=== PATIENT | female | born 1955 | race Two or more races ===

== ENCOUNTER 2018-01-13 23:12 | Inpatient (IN) | payer OTHER, MEDICAID ==
[~2018-01-13] VITALS: Ht 165.1 cm; Wt 80.8 kg
[~2018-01-13 23:12] MED LIST: ATOR20TA9 PO; BACL20TA PO; BUPR100T11 PO; CETI10TA32 PO; GABA300C PO; HYDR-3307 PO; LEVOTHYROXIN PO; LIDO700A30 TP; LISI-170; LISI-170 PO; METF-366; METF500T4 PO; MULT1TAB50; MULT1TAB50 PO; PARO20TA4 PO; POLY500P18 PO; PROP80CA3 PO; PROPRANOLOL ER; TIZA4CAP
[2018-01-13] MEDS ORDERED: ONDANSETRON ODT 4 MG ONE (23:24)
[2018-01-13] MEDS ORDERED: GLUCAGON 1 MG ONE (23:24)
[2018-01-13] MEDS ORDERED: NALOXONE 0.4 MG/ML, 1ML ONE (23:24)
[2018-01-13] MEDS ORDERED: GLUCAGON 1 MG IVPush ONE (23:30)
[2018-01-13] MEDS ORDERED: ONDANSETRON ODT 4 MG PO ONE (23:30)
[2018-01-13] MEDS ORDERED: NALOXONE 0.4 MG/ML, 1ML IVPush PRN (23:30)
[2018-01-13] MEDS ORDERED: SODIUM CHLORIDE 0.9% 1,000ML IVBOLUS ONE (23:30)
[2018-01-13] MEDS ORDERED: CHARCOAL/SORBITOL 50 GM/240 ML PO ONE (23:30)
[2018-01-13] MEDS ORDERED: PROMETHAZINE 25 MG/ML, 1ML ONE (23:39)
[2018-01-14 00:07] LABS: BASOPHILS # (AUTO) 0.04 x10^3/uL (0-0.1); BASOPHILS % (AUTO) 0 % (0-1); EOSINOPHILS # (AUTO) 0.39 x10^3/uL (0-0.4); EOSINOPHILS % (AUTO) 4 % (1-7); LYMPHOCYTES # (AUTO) 4.42 x10^3/uL (1-3.4); LYMPHOCYTES % (AUTO) 40 % (22-44); MD NO; MEAN CORPUSCULAR HEMOGLOBIN 33.7 pg (27.0-34.8); MEAN CORPUSCULAR HGB CONC 34.1 g/dL (32.4-35.8); MEAN CORPUSCULAR VOLUME 98.9 fL (80-100); MEAN PLATELET VOLUME 7.5 fL (7.4-10.4); MONOCYTES # (AUTO) 0.79 x10^3/uL (0.2-0.8); MONOCYTES % (AUTO) 7 % (2-9); NEUTROPHILS # (AUTO) 5.44 x10^3/uL (1.8-6.8); NEUTROPHILS % (AUTO) 49 % (42-75); PLATELET COUNT 279 x10^3/uL (130-400); RED BLOOD COUNT 3.39 x10^6/uL (3.82-5.3); RED CELL DISTRIBUTION WIDTH 12.7 % (9.6-15.2)
[2018-01-14 00:18] LABS: ALANINE AMINOTRANSFERASE 26 U/L (12-78); ALBUMIN 2.3 g/dL (3.4-5.0); ANION GAP 14 mmol/L (5-15); CALCIUM 7.9 mg/dL (8.5-10.1); CHLORIDE 117 mmol/L (98-107); SALICYLATE LEVEL 4.2 mg/dL (2.8-20.0)
[2018-01-14 00:21] LABS: ACETAMINOPHEN 3 mcg/mL (10-30); ALKALINE PHOSPHATASE 100 U/L (45-117); BILIRUBIN,TOTAL 0.3 mg/dL (0.2-1.0); CREATININE 1.21 mg/dL (0.55-1.02); TOTAL PROTEIN 5.5 g/dL (6.4-8.2)
[2018-01-14] MEDS ORDERED: LIDOCAINE-MPF 1%, 5ML ONE (00:26)
[2018-01-14] MEDS ORDERED: GLUCAGON 1 MG IM PRN (00:30)
[2018-01-14] MEDS ORDERED: DEXTROSE 4 GM TAB.CHEW PO PRN (00:30)
[2018-01-14] MEDS ORDERED: ACETAMINOPHEN 325 MG TABLET PO PRN (00:30)
[2018-01-14] MEDS ORDERED: DEXTROSE 50%, 50ML SYRINGE IVPush PRN ×2 (00:30→04:00)
[2018-01-14] MEDS: DOPAMINE/D5W PMX 250 ML IV PRN ×3 (00:55→08:58)
[2018-01-14 00:59] LABS: TROPONIN I < 0.015 ng/mL (0.000-0.045)
[2018-01-14] MEDS ORDERED: GLUCAGON 1 MG ONE (01:25)
[2018-01-14] MEDS: SODIUM CHLORIDE 0.9% 1,000 ML IV SCH ×2 (01:30→08:29)
[2018-01-14] MEDS ORDERED: GLUCAGON 1 MG IVPush ONE (01:30)
[2018-01-14] MEDS ORDERED: NOREPINEPHRINE 4 MG in SODIUM CHLORIDE 0.9% 246 ML IV PRN ×2 (02:00→03:00)
[2018-01-14 02:01] LABS: CULTURE INDICATED? NO; MICROSCOPIC NOT IND
[2018-01-14] MEDS ORDERED: RISP0.5T3 PO (02:04)
[2018-01-14 02:16] LABS: AMPHETAMINE SCREEN, URINE Negative (Negative); BARBITURATE SCREEN, URINE Negative (Negative); BENZODIAZEPINE SCREEN, URINE Negative (Negative); CANNABINOID SCREEN, URINE Negative (Negative); COCAINE SCREEN, URINE Negative (Negative); METHADONE SCREEN, URINE Negative (Negative); OPIATE SCREEN, URINE Negative (Negative)
[2018-01-14 03:15] VITALS: BP 91/42
[2018-01-14] MEDS: SODIUM CHLORIDE FLUSH 10ML SYR IVF SCH ×5 (03:29→21:14)
[2018-01-14] MEDS ORDERED: REGULAR INSULIN 250 UNITS in SODIUM CHLORIDE 0.9% 247.5 ML IV SCH (03:30)
[2018-01-14] MEDS: HEPARIN 5,000 UNITS/ML, 1ML SQ SCH ×3 (03:30→20:09)
[2018-01-14] MEDS ORDERED: NOREPINEPHRINE 16 MG in SODIUM CHLORIDE 0.9% 234 ML IV PRN ×2 (03:42→03:43)
[2018-01-14 04:06] VITALS: BP 99/47
[2018-01-14] MEDS ORDERED: INSULIN REGULAR 100 UNITS/ML, 3ML VIAL SQ-INSULIN SCH (07:00)
[2018-01-14 07:08] LABS: TROPONIN I 0.209 ng/mL (0.000-0.045)
[2018-01-14 07:17] LABS: MEAN CORPUSCULAR HGB CONC 33.6 g/dL (32.4-35.8); MEAN PLATELET VOLUME 7.8 fL (7.4-10.4); PLATELET COUNT 359 x10^3/uL (130-400); RED BLOOD COUNT 4.08 x10^6/uL (3.82-5.3); RED CELL DISTRIBUTION WIDTH 12.6 % (9.6-15.2)
[2018-01-14 07:20] LABS: ANION GAP 13 mmol/L (5-15); CALCIUM 8.3 mg/dL (8.5-10.1); CHLORIDE 115 mmol/L (98-107)
[2018-01-14 07:34] LABS: BASOPHILS # (AUTO) 0.01 x10^3/uL (0-0.1); BASOPHILS % (AUTO) 0 % (0-1); EOSINOPHILS # (AUTO) 0.02 x10^3/uL (0-0.4); EOSINOPHILS % (AUTO) 0 % (1-7); LYMPHOCYTES # (AUTO) 1.46 x10^3/uL (1-3.4); LYMPHOCYTES % (AUTO) 9 % (22-44); MD SCAN; MONOCYTES # (AUTO) 0.78 x10^3/uL (0.2-0.8); MONOCYTES % (AUTO) 5 % (2-9); NEUTROPHILS # (AUTO) 14.05 x10^3/uL (1.8-6.8); NEUTROPHILS % (AUTO) 86 % (42-75)
[2018-01-14] MEDS: REGULAR INSULIN 500 UNITS in SODIUM CHLORIDE 0.9% 245 ML IV SCH ×3 (08:00→19:18)
[2018-01-14] MEDS ORDERED: SODIUM BICARB 8.4%, 50ML SYRINGE IVPush ONE (08:30)
[2018-01-14] MEDS: SODIUM BICARBONATE 8.4% 150 MEQ in DEXTROSE 5% 1,000 ML IV SCH ×2 (09:27→18:24)
[2018-01-14] MEDS: FAMOTIDINE 20 MG/2 ML IVPush SCH ×2 (09:27→21:14)
[2018-01-14] MEDS: NICOTINE 14MG/24 HR PATCH.TD24 TD SCH (09:28)
[2018-01-14 12:24] LABS: ANION GAP 7 mmol/L (5-15); CALCIUM 7.7 mg/dL (8.5-10.1); CHLORIDE 110 mmol/L (98-107); CREATININE 1.24 mg/dL (0.55-1.02)
[2018-01-14 12:28] LABS: TROPONIN I 0.258 ng/mL (0.000-0.045)
[2018-01-14] MEDS: INSULIN LISPRO 100 UNITS/ML, PEN SQ-INSULIN SCH ×2 (16:00→21:00)
[2018-01-14 18:11] LABS: ANION GAP 10 mmol/L (5-15); CALCIUM 7.5 mg/dL (8.5-10.1); CHLORIDE 105 mmol/L (98-107); CREATININE 1.25 mg/dL (0.55-1.02)
[2018-01-14 18:15] LABS: TROPONIN I 0.214 ng/mL (0.000-0.045)
[2018-01-14 18:31] LABS: MEAN CORPUSCULAR HEMOGLOBIN 32.8 pg (27.0-34.8); MEAN CORPUSCULAR HGB CONC 33.8 g/dL (32.4-35.8); MEAN CORPUSCULAR VOLUME 97.2 fL (80-100); MEAN PLATELET VOLUME 7.3 fL (7.4-10.4); PLATELET COUNT 286 x10^3/uL (130-400); RED BLOOD COUNT 3.66 x10^6/uL (3.82-5.3); RED CELL DISTRIBUTION WIDTH 12.5 % (9.6-15.2)
[2018-01-14 18:33] LABS: BASOPHILS % (AUTO) 0 % (0-1); EOSINOPHILS % (AUTO) 0 % (1-7); LYMPHOCYTES # (AUTO) 1.37 x10^3/uL (1-3.4); LYMPHOCYTES % (AUTO) 12 % (22-44); MD SCAN; MONOCYTES # (AUTO) 0.66 x10^3/uL (0.2-0.8); MONOCYTES % (AUTO) 6 % (2-9); NEUTROPHILS # (AUTO) 9.64 x10^3/uL (1.8-6.8); NEUTROPHILS % (AUTO) 83 % (42-75)
[2018-01-14] MEDS ORDERED: MAGNESIUM SULFATE PMX 4GM/100M 100 ML IV ONE (19:00)
[2018-01-15] MEDS ORDERED: HALOPERIDOL 5 MG/ML ONE (00:15)
[2018-01-15] MEDS ORDERED: HALOPERIDOL 5 MG/ML IV ONE ×2 (00:30→20:30)
[2018-01-15] MEDS: REGULAR INSULIN 500 UNITS in SODIUM CHLORIDE 0.9% 245 ML IV SCH ×2 (00:57→06:17)
[2018-01-15] MEDS: SODIUM BICARBONATE 8.4% 150 MEQ in DEXTROSE 5% 1,000 ML IV SCH (01:46)
[2018-01-15] MEDS: HEPARIN 5,000 UNITS/ML, 1ML SQ SCH ×2 (03:53→15:54)
[2018-01-15] MEDS: SODIUM CHLORIDE FLUSH 10ML SYR IVF SCH ×5 (03:53→20:01)
[2018-01-15 04:00] VITALS: BP 139/60
[2018-01-15 04:55] LABS: BASOPHILS % (AUTO) 0 % (0-1); EOSINOPHILS # (AUTO) 0.01 x10^3/uL (0-0.4); EOSINOPHILS % (AUTO) 0 % (1-7); LYMPHOCYTES # (AUTO) 2.48 x10^3/uL (1-3.4); LYMPHOCYTES % (AUTO) 26 % (22-44); MD NO; MEAN CORPUSCULAR HEMOGLOBIN 33.4 pg (27.0-34.8); MEAN CORPUSCULAR HGB CONC 34.2 g/dL (32.4-35.8); MEAN CORPUSCULAR VOLUME 97.6 fL (80-100); MEAN PLATELET VOLUME 7.5 fL (7.4-10.4); MONOCYTES # (AUTO) 0.74 x10^3/uL (0.2-0.8); MONOCYTES % (AUTO) 8 % (2-9); NEUTROPHILS # (AUTO) 6.49 x10^3/uL (1.8-6.8); NEUTROPHILS % (AUTO) 67 % (42-75); PLATELET COUNT 269 x10^3/uL (130-400); RED BLOOD COUNT 3.27 x10^6/uL (3.82-5.3); RED CELL DISTRIBUTION WIDTH 12.4 % (9.6-15.2)
[2018-01-15 04:59] LABS: ANION GAP 5 mmol/L (5-15); CALCIUM 7.9 mg/dL (8.5-10.1); CHLORIDE 105 mmol/L (98-107)
[2018-01-15 05:02] LABS: CREATININE 1.27 mg/dL (0.55-1.02)
[2018-01-15] MEDS: INSULIN LISPRO 100 UNITS/ML, PEN SQ-INSULIN SCH ×4 (07:00→21:00)
[2018-01-15] MEDS: FAMOTIDINE 20 MG/2 ML IVPush SCH ×2 (08:51→21:00)
[2018-01-15] MEDS: NICOTINE 14MG/24 HR PATCH.TD24 TD SCH (08:51)
[2018-01-15 10:39] VITALS: BP 125/69
[2018-01-15 12:35] VITALS: BP 119/70
[2018-01-15] MEDS: D5%-0.45NACL+KCL 20MEQ 1,000 ML IV SCH (15:52)
[2018-01-15 19:30] VITALS: BP 114/68
[2018-01-15] MEDS: LORazepam 2 MG/ML, 1ML IVPush PRN (20:01)
[2018-01-16] MEDS: HEPARIN 5,000 UNITS/ML, 1ML SQ SCH ×3 (01:09→18:19)
[2018-01-16 01:19] VITALS: BP 137/66
[2018-01-16] MEDS: SODIUM CHLORIDE FLUSH 10ML SYR IVF SCH ×4 (03:33→22:39)
[2018-01-16 04:02] VITALS: BP 114/67
[2018-01-16 05:35] LABS: ALBUMIN 2.6 g/dL (3.4-5.0); ANION GAP 8 mmol/L (5-15); CALCIUM 8.1 mg/dL (8.5-10.1); CHLORIDE 108 mmol/L (98-107)
[2018-01-16 05:39] LABS: ALANINE AMINOTRANSFERASE 33 U/L (12-78); ALKALINE PHOSPHATASE 99 U/L (45-117); BILIRUBIN,TOTAL 0.9 mg/dL (0.2-1.0); CREATININE 1.33 mg/dL (0.55-1.02); TOTAL PROTEIN 6.3 g/dL (6.4-8.2)
[2018-01-16] MEDS: INSULIN LISPRO 100 UNITS/ML, PEN SQ-INSULIN SCH ×4 (07:00→22:40)
[2018-01-16 08:44] VITALS: BP 117/69
[2018-01-16] MEDS: FAMOTIDINE 20 MG/2 ML IVPush SCH (10:02)
[2018-01-16] MEDS: NICOTINE 14MG/24 HR PATCH.TD24 TD SCH (10:03)
[2018-01-16] MEDS: PAROXETINE 20 MG TABLET PO SCH (10:05)
[2018-01-16] MEDS: RISPERIDONE 0.5 MG TABLET PO SCH ×2 (10:05→21:00)
[2018-01-16] MEDS: D5%-0.45NACL+KCL 20MEQ 1,000 ML IV SCH (13:07)
[2018-01-16 13:35] VITALS: BP 153/78
[2018-01-16] MEDS: LORazepam 2 MG/ML, 1ML IVPush PRN (14:43)
[2018-01-16] MEDS: QUETIAPINE 25MG TABLET PO SCH ×2 (18:19→21:00)
[2018-01-16 19:34] VITALS: BP 167/81
[2018-01-16] MEDS: FAMOTIDINE 20 MG TABLET PO SCH (21:00)
[2018-01-16] MEDS: ATORVASTATIN 20 MG TABLET PO SCH (21:00)
[2018-01-17] MEDS: HEPARIN 5,000 UNITS/ML, 1ML SQ SCH ×3 (02:16→18:33)
[2018-01-17 02:26] VITALS: BP 173/75
[2018-01-17] MEDS: INSULIN LISPRO 100 UNITS/ML, PEN SQ-INSULIN SCH ×4 (07:00→22:08)
[2018-01-17 07:29] LABS: ALANINE AMINOTRANSFERASE 34 U/L (12-78); ALBUMIN 2.6 g/dL (3.4-5.0); ANION GAP 7 mmol/L (5-15); CALCIUM 8.2 mg/dL (8.5-10.1); CHLORIDE 111 mmol/L (98-107); CREATININE 1.27 mg/dL (0.55-1.02)
[2018-01-17 07:31] LABS: ALKALINE PHOSPHATASE 101 U/L (45-117); BILIRUBIN,TOTAL 0.6 mg/dL (0.2-1.0); TOTAL PROTEIN 6.3 g/dL (6.4-8.2)
[2018-01-17] MEDS: D5%-0.45NACL+KCL 20MEQ 1,000 ML IV SCH (09:00)
[2018-01-17] MEDS: SODIUM CHLORIDE FLUSH 10ML SYR IVF SCH ×2 (09:00→22:08)
[2018-01-17 09:38] VITALS: BP 129/83
[2018-01-17] MEDS: NICOTINE 14MG/24 HR PATCH.TD24 TD SCH (09:40)
[2018-01-17] MEDS: PAROXETINE 20 MG TABLET PO SCH (09:41)
[2018-01-17] MEDS: FAMOTIDINE 20 MG TABLET PO SCH ×2 (09:41→22:07)
[2018-01-17] MEDS: RISPERIDONE 0.5 MG TABLET PO SCH (09:41)
[2018-01-17 13:36] VITALS: BP 121/79
[2018-01-17] MEDS: QUETIAPINE 25MG TABLET PO SCH (22:07)
[2018-01-17] MEDS: ATORVASTATIN 20 MG TABLET PO SCH (22:07)
[2018-01-18 02:23] VITALS: BP 150/92
[2018-01-18 02:34] VITALS: BP 156/79
[2018-01-18] MEDS: HEPARIN 5,000 UNITS/ML, 1ML SQ SCH ×3 (02:49→17:13)
[2018-01-18] MEDS: D5%-0.45NACL+KCL 20MEQ 1,000 ML IV SCH (06:14)
[2018-01-18 06:40] LABS: ANION GAP 7 mmol/L (5-15); CALCIUM 8.5 mg/dL (8.5-10.1); CHLORIDE 112 mmol/L (98-107); CREATININE 1.17 mg/dL (0.55-1.02)
[2018-01-18] MEDS: INSULIN LISPRO 100 UNITS/ML, PEN SQ-INSULIN SCH ×4 (07:00→20:05)
[2018-01-18 07:20] VITALS: BP 187/84
[2018-01-18] MEDS: FAMOTIDINE 20 MG TABLET PO SCH ×2 (08:28→20:04)
[2018-01-18] MEDS: SODIUM CHLORIDE FLUSH 10ML SYR IVF SCH ×2 (08:28→20:05)
[2018-01-18] MEDS: NICOTINE 14MG/24 HR PATCH.TD24 TD SCH (08:28)
[2018-01-18] MEDS ORDERED: QUETIAPINE 25MG TABLET PO SCH (12:00)
[2018-01-18] MEDS ORDERED: LISINOPRIL 20 MG TABLET PO ONE (12:30)
[2018-01-18 12:55] VITALS: BP 147/82
[2018-01-18 18:33] VITALS: BP 154/82
[2018-01-18] MEDS: QUETIAPINE 25MG TABLET PO SCH (20:04)
[2018-01-18] MEDS: ATORVASTATIN 20 MG TABLET PO SCH (20:05)
[2018-01-19 01:32] VITALS: BP 154/79
[2018-01-19] MEDS: HEPARIN 5,000 UNITS/ML, 1ML SQ SCH ×3 (02:20→17:24)
[2018-01-19 06:02] LABS: ALANINE AMINOTRANSFERASE 44 U/L (12-78); ALBUMIN 2.6 g/dL (3.4-5.0); ANION GAP 7 mmol/L (5-15); CALCIUM 8.8 mg/dL (8.5-10.1); CHLORIDE 113 mmol/L (98-107); CREATININE 1.53 mg/dL (0.55-1.02)
[2018-01-19 06:05] LABS: ALKALINE PHOSPHATASE 115 U/L (45-117); BILIRUBIN,TOTAL 0.6 mg/dL (0.2-1.0); TOTAL PROTEIN 6.1 g/dL (6.4-8.2)
[2018-01-19] MEDS: INSULIN LISPRO 100 UNITS/ML, PEN SQ-INSULIN SCH ×4 (07:00→20:14)
[2018-01-19] MEDS: FAMOTIDINE 20 MG TABLET PO SCH ×2 (08:21→20:14)
[2018-01-19] MEDS: QUETIAPINE 25MG TABLET PO SCH ×2 (08:21→20:14)
[2018-01-19] MEDS: NICOTINE 14MG/24 HR PATCH.TD24 TD SCH (08:22)
[2018-01-19] MEDS: SODIUM CHLORIDE FLUSH 10ML SYR IVF SCH ×2 (08:25→20:13)
[2018-01-19 08:26] VITALS: BP 155/78
[2018-01-19] MEDS: LISINOPRIL 20 MG TABLET PO SCH (12:09)
[2018-01-19 14:09] VITALS: BP 102/58
[2018-01-19 15:53] VITALS: BP 125/80
[2018-01-19 20:06] VITALS: BP 139/75
[2018-01-19] MEDS: ATORVASTATIN 20 MG TABLET PO SCH (20:14)
[2018-01-20] MEDS: HEPARIN 5,000 UNITS/ML, 1ML SQ SCH ×3 (03:10→17:13)
[2018-01-20 04:00] VITALS: BP 128/75
[2018-01-20] MEDS: LEVOTHYROXINE 200 MCG TABLET PO SCH (06:13)
[2018-01-20] MEDS: INSULIN LISPRO 100 UNITS/ML, PEN SQ-INSULIN SCH ×4 (07:00→21:00)
[2018-01-20 07:16] VITALS: BP 149/77
[2018-01-20 07:27] LABS: ANION GAP 8 mmol/L (5-15); CALCIUM 9.1 mg/dL (8.5-10.1); CHLORIDE 112 mmol/L (98-107); CREATININE 1.35 mg/dL (0.55-1.02)
[2018-01-20] MEDS: FAMOTIDINE 20 MG TABLET PO SCH (08:32)
[2018-01-20] MEDS: SODIUM CHLORIDE FLUSH 10ML SYR IVF SCH ×2 (08:32→21:18)
[2018-01-20] MEDS: LISINOPRIL 20 MG TABLET PO SCH (08:32)
[2018-01-20] MEDS: QUETIAPINE 25MG TABLET PO SCH ×2 (08:32→21:19)
[2018-01-20] MEDS: NICOTINE 14MG/24 HR PATCH.TD24 TD SCH (08:33)
[2018-01-20 12:54] VITALS: BP 128/50
[2018-01-20 20:33] VITALS: BP 143/74
[2018-01-20] MEDS: ATORVASTATIN 20 MG TABLET PO SCH (21:19)
[2018-01-21 02:36] VITALS: BP 132/77
[2018-01-21] MEDS: HEPARIN 5,000 UNITS/ML, 1ML SQ SCH ×3 (02:59→18:31)
[2018-01-21 05:00] LABS: BASOPHILS # (AUTO) 0.02 x10^3/uL (0-0.1); BASOPHILS % (AUTO) 0 % (0-1); EOSINOPHILS # (AUTO) 0.32 x10^3/uL (0-0.4); EOSINOPHILS % (AUTO) 3 % (1-7); LYMPHOCYTES # (AUTO) 2.76 x10^3/uL (1-3.4); LYMPHOCYTES % (AUTO) 28 % (22-44); MD NO; MEAN CORPUSCULAR HEMOGLOBIN 33.6 pg (27.0-34.8); MEAN CORPUSCULAR HGB CONC 34.3 g/dL (32.4-35.8); MEAN CORPUSCULAR VOLUME 97.8 fL (80-100); MEAN PLATELET VOLUME 7.6 fL (7.4-10.4); MONOCYTES # (AUTO) 0.89 x10^3/uL (0.2-0.8); MONOCYTES % (AUTO) 9 % (2-9); NEUTROPHILS # (AUTO) 5.99 x10^3/uL (1.8-6.8); NEUTROPHILS % (AUTO) 60 % (42-75); PLATELET COUNT 301 x10^3/uL (130-400); RED BLOOD COUNT 3.59 x10^6/uL (3.82-5.3); RED CELL DISTRIBUTION WIDTH 13.1 % (9.6-15.2)
[2018-01-21 05:06] LABS: ANION GAP 8 mmol/L (5-15); CALCIUM 8.9 mg/dL (8.5-10.1); CHLORIDE 112 mmol/L (98-107)
[2018-01-21 05:08] LABS: CREATININE 1.24 mg/dL (0.55-1.02)
[2018-01-21] MEDS: LEVOTHYROXINE 200 MCG TABLET PO SCH (05:53)
[2018-01-21] MEDS: INSULIN LISPRO 100 UNITS/ML, PEN SQ-INSULIN SCH ×4 (07:00→20:29)
[2018-01-21 07:32] VITALS: BP 123/77
[2018-01-21] MEDS: SODIUM CHLORIDE FLUSH 10ML SYR IVF SCH ×2 (07:44→20:00)
[2018-01-21] MEDS: QUETIAPINE 25MG TABLET PO SCH (07:45)
[2018-01-21] MEDS: FAMOTIDINE 20 MG TABLET PO SCH (07:45)
[2018-01-21] MEDS: LISINOPRIL 20 MG TABLET PO SCH (07:45)
[2018-01-21] MEDS: NICOTINE 14MG/24 HR PATCH.TD24 TD SCH (07:46)
[2018-01-21] MEDS: PROPRANOLOl 80 MG CAP.SA.24H PO SCH (07:46)
[2018-01-21 13:47] VITALS: BP 125/76
[2018-01-21] MEDS: ATORVASTATIN 20 MG TABLET PO SCH (20:00)
[2018-01-21 20:22] VITALS: BP 125/50
[2018-01-21] MEDS ORDERED: QUETIAPINE 100MG TABLET PO SCH (21:00)
[2018-01-22 00:32] VITALS: BP 145/74
[2018-01-22] MEDS: HEPARIN 5,000 UNITS/ML, 1ML SQ SCH ×3 (02:00→18:27)
[2018-01-22 05:29] LABS: BASOPHILS # (AUTO) 0.01 x10^3/uL (0-0.1); BASOPHILS % (AUTO) 0 % (0-1); EOSINOPHILS # (AUTO) 0.31 x10^3/uL (0-0.4); EOSINOPHILS % (AUTO) 3 % (1-7); LYMPHOCYTES # (AUTO) 2.89 x10^3/uL (1-3.4); LYMPHOCYTES % (AUTO) 30 % (22-44); MD NO; MEAN CORPUSCULAR HEMOGLOBIN 33.7 pg (27.0-34.8); MEAN CORPUSCULAR HGB CONC 34.3 g/dL (32.4-35.8); MEAN CORPUSCULAR VOLUME 98.2 fL (80-100); MEAN PLATELET VOLUME 7.3 fL (7.4-10.4); MONOCYTES # (AUTO) 1.02 x10^3/uL (0.2-0.8); MONOCYTES % (AUTO) 11 % (2-9); NEUTROPHILS # (AUTO) 5.58 x10^3/uL (1.8-6.8); NEUTROPHILS % (AUTO) 57 % (42-75); PLATELET COUNT 315 x10^3/uL (130-400); RED BLOOD COUNT 3.66 x10^6/uL (3.82-5.3); RED CELL DISTRIBUTION WIDTH 12.8 % (9.6-15.2)
[2018-01-22 05:39] LABS: ALBUMIN 2.7 g/dL (3.4-5.0); ANION GAP 5 mmol/L (5-15); CALCIUM 8.9 mg/dL (8.5-10.1); CHLORIDE 114 mmol/L (98-107)
[2018-01-22 05:44] LABS: ALANINE AMINOTRANSFERASE 54 U/L (12-78); ALKALINE PHOSPHATASE 108 U/L (45-117); BILIRUBIN,TOTAL 0.7 mg/dL (0.2-1.0); CREATININE 1.21 mg/dL (0.55-1.02); TOTAL PROTEIN 6.7 g/dL (6.4-8.2)
[2018-01-22] MEDS: LEVOTHYROXINE 200 MCG TABLET PO SCH (05:49)
[2018-01-22] MEDS: INSULIN LISPRO 100 UNITS/ML, PEN SQ-INSULIN SCH ×4 (07:00→21:39)
[2018-01-22 08:37] VITALS: BP 133/61
[2018-01-22] MEDS: PROPRANOLOl 80 MG CAP.SA.24H PO SCH (09:00)
[2018-01-22] MEDS: LISINOPRIL 20 MG TABLET PO SCH (09:00)
[2018-01-22] MEDS ORDERED: POLYETHYLENE GLYCOL 17 GM PACKET NG PRN (10:00)
[2018-01-22] MEDS: SODIUM CHLORIDE FLUSH 10ML SYR IVF SCH ×2 (11:20→21:41)
[2018-01-22] MEDS: FAMOTIDINE 20 MG TABLET PO SCH (11:20)
[2018-01-22] MEDS: NICOTINE 14MG/24 HR PATCH.TD24 TD SCH (11:21)
[2018-01-22 13:51] VITALS: BP 132/60
[2018-01-22 20:55] VITALS: BP 100/59
[2018-01-22] MEDS ORDERED: QUETIAPINE 200 MG TABLET PO SCH (21:00)
[2018-01-22] MEDS: ATORVASTATIN 20 MG TABLET PO SCH (21:41)
[2018-01-23 02:59] VITALS: BP 123/78
[2018-01-23] MEDS: LEVOTHYROXINE 200 MCG TABLET PO SCH (04:27)
[2018-01-23] MEDS: HEPARIN 5,000 UNITS/ML, 1ML SQ SCH ×2 (04:29→13:50)
[2018-01-23] MEDS: INSULIN LISPRO 100 UNITS/ML, PEN SQ-INSULIN SCH ×3 (07:00→16:00)
[2018-01-23 07:51] VITALS: BP 106/65
[2018-01-23] MEDS: SODIUM CHLORIDE FLUSH 10ML SYR IVF SCH (09:00)
[2018-01-23] MEDS: PROPRANOLOl 80 MG CAP.SA.24H PO SCH (09:00)
[2018-01-23] MEDS: FAMOTIDINE 20 MG TABLET PO SCH (10:31)
[2018-01-23] MEDS: LISINOPRIL 20 MG TABLET PO SCH (10:31)
[2018-01-23] MEDS: NICOTINE 14MG/24 HR PATCH.TD24 TD SCH (10:32)
[2018-01-23] MEDS ORDERED: QUET200T PO (13:24)
[2018-01-23 14:35] VITALS: BP 102/66
== END 2018-01-23 18:01 | disposition home or self-care (01) | DRG 917 ==
LOC: ED 23:59 → EDIP 01-14 00:29 → CCU 01-14 03:03 → 4EST 01-15 10:17
PROVIDERS: ADMIT Family Medicine; ATTEND Family Medicine
PROC: 0T9B70Z Drainage of Bladder with Drainage Device, Via Natural or Artificial Opening (ICD-10-PCS; principal; 2018-01-14)
PROC: 02HV33Z Insertion of Infusion Device into Superior Vena Cava, Percutaneous Approach (ICD-10-PCS; 2018-01-14)
PROC: B548ZZA Ultrasonography of Superior Vena Cava, Guidance (ICD-10-PCS; 2018-01-14)
DX: T44.992A Poisoning by other drug primarily affecting the autonomic nervous system, intentional self-harm, initial encounter (principal); G92 Toxic encephalopathy; N17.0 Acute kidney failure with tubular necrosis; R57.0 Cardiogenic shock; F33.2 Major depressive disorder, recurrent severe without psychotic features; D64.9 Anemia, unspecified; E11.9 Type 2 diabetes mellitus without complications; E87.2 Acidosis; E03.9 Hypothyroidism, unspecified; E86.0 Dehydration; T38.1X2A Poisoning by thyroid hormones and substitutes, intentional self-harm, initial encounter; T43.592A Poisoning by other antipsychotics and neuroleptics, intentional self-harm, initial encounter; T38.3X2A Poisoning by insulin and oral hypoglycemic [antidiabetic] drugs, intentional self-harm, initial encounter; T43.222A Poisoning by selective serotonin reuptake inhibitors, intentional self-harm, initial encounter; T39.392A Poisoning by other nonsteroidal anti-inflammatory drugs [NSAID], intentional self-harm, initial encounter; T46.4X2A Poisoning by angiotensin-converting-enzyme inhibitors, intentional self-harm, initial encounter; Z88.8 Allergy status to other drugs, medicaments and biological substances; F17.200 Nicotine dependence, unspecified, uncomplicated; I10 Essential (primary) hypertension; J44.9 Chronic obstructive pulmonary disease, unspecified; M79.7 Fibromyalgia; Z63.8 Other specified problems related to primary support group; Z78.1 Physical restraint status; Z79.84 Long term (current) use of oral hypoglycemic drugs; Z79.899 Other long term (current) drug therapy; Z91.5 Personal history of self-harm; I95.2 Hypotension due to drugs; Y92.89 Other specified places as the place of occurrence of the external cause
CPT/HCPCS: 36415; 36569; 36600; 71045; 80048; 80053; 80307; 80329; 81003; 82040; 82800; 82803; 82962; 83605; 83735; 84100; 84443; 84484; 85025; 87081; 93005; 96365; 96375; 96376; 99292; J1265; J1644; J1815; J7070; Q0162; G0480; J1610; J1630; J2060; J3475; J3480; J7030; J7050; S0028

== ENCOUNTER 2018-08-26 14:04 | Inpatient (IN) | payer OTHER, MEDICAID ==
[~2018-08-26] VITALS: Ht 165.1 cm; Wt 76.8 kg
[~2018-08-26 14:04] MED LIST changes: +ATOR20TA37 PO; -ATOR20TA9 PO; +METF500T17 PO; -METF500T4 PO; +QUET200T PO; +RISP0.5T3 PO
--- NOTE | 2018-08-26 14:16 | NUR ---
63 Y/O FEMALE BIB AMBULANCE WITHC/O DIZZINESS. PT STATES "WE WERE AT [facility] AND I JUST GOT DIZZY." PER EMS REPORT PT HAD ONE EPISODE OF EMESIS. PIV ESTABLISHED MEDICARE SPECIALIST, 300 mL NS ADMINISTERED MEDICARE SPECIALIST. NO C/O D, TRAUMA, SYNCOPE, CP, SOB. PT PLACED ON CONT PULSE OX,NIBP, AMMUNITION ASSEMBLY I LABORER. BEDSIDE. PER "SHE STARTED A NEW MEDICATION. I DON'T KNOW IF THAT CAN BE IT." NEW PT MEDICATION IS KLONOPIN Addendum: 08/26/18 at 1650 by [email or web address] NO C/O LOC
[2018-08-26] MEDS ORDERED: SODIUM CHLORIDE FLUSH 10ML SYR IVF ONE (14:30)
[2018-08-26 14:35] LABS: BASOPHILS # (AUTO) 0.01 x10^3/uL (0-0.1); BASOPHILS % (AUTO) 0 % (0-1); EOSINOPHILS # (AUTO) 0.09 x10^3/uL (0-0.4); EOSINOPHILS % (AUTO) 1 % (1-7); LYMPHOCYTES # (AUTO) 1.42 x10^3/uL (1-3.4); LYMPHOCYTES % (AUTO) 22 % (22-44); MD NO; MEAN CORPUSCULAR HEMOGLOBIN 32.6 pg (27.0-34.8); MEAN CORPUSCULAR HGB CONC 33.8 g/dL (32.4-35.8); MEAN CORPUSCULAR VOLUME 96.3 fL (80-100); MEAN PLATELET VOLUME 7.5 fL (7.4-10.4); MONOCYTES # (AUTO) 0.36 x10^3/uL (0.2-0.8); MONOCYTES % (AUTO) 6 % (2-9); NEUTROPHILS # (AUTO) 4.49 x10^3/uL (1.8-6.8); NEUTROPHILS % (AUTO) 71 % (42-75); PLATELET COUNT 291 x10^3/uL (130-400); RED BLOOD COUNT 3.03 x10^6/uL (3.82-5.3); RED CELL DISTRIBUTION WIDTH 12.6 % (9.6-15.2)
[2018-08-26 14:37] LABS: INTERNATIONAL NORMALIZED RATIO 1.07 (0.93-1.1); PROTHROMBIN TIME 11.3 Seconds (9.6-11.5)
[2018-08-26 14:38] LABS: ALBUMIN 2.6 g/dL (3.4-5.0); ANION GAP 7 mmol/L (5-15); CALCIUM 7.9 mg/dL (8.5-10.1); CHLORIDE 116 mmol/L (98-107); CREATININE 2.42 mg/dL (0.55-1.02)
[2018-08-26 14:43] LABS: ALKALINE PHOSPHATASE 90 U/L (45-117); BILIRUBIN,TOTAL 0.4 mg/dL (0.2-1.0); TOTAL PROTEIN 5.7 g/dL (6.4-8.2); TROPONIN I < 0.015 ng/mL (0.000-0.045)
[2018-08-26 14:44] LABS: ALANINE AMINOTRANSFERASE 39 U/L (12-78)
--- NOTE | 2018-08-26 14:52 | NUR ---
EDMD PERFORMS RECTAL EXAM. THIS RN PRESENT DURING WHOLE PROCEDURE. PT TOLERATED WITH NO COMPLICATIONS. PT RESTING ON GURNEY. NO ACUTE DISTRESS NOTED. NO NEEDS REQUESTED AT THIS TIME.
[2018-08-26] MEDS ORDERED: CLONAZEPAM (14:58)
[2018-08-26] MEDS ORDERED: SODIUM CHLORIDE 0.9% 1,000ML IVBOLUS ONE (15:00)
--- NOTE | 2018-08-26 15:23 | NUR ---
PT GIVEN MORE BLANKETS. NO ACUTE DISTRESS NOTED. FAMILY WAS BEDSIDE VISITING. NO NEEDS REQUESTED AT THIS TIME.
[2018-08-26] MEDS ORDERED: ONDANSETRON ODT 4 MG PO PRN (16:00)
[2018-08-26] MEDS ORDERED: ACETAMINOPHEN 325 MG TABLET PO PRN (16:00)
[2018-08-26] MEDS ORDERED: IBUPROFEN 600 MG TABLET PO PRN (16:00)
--- NOTE | 2018-08-26 16:26 | NUR ---
PT RESTING ON GURNEY. NO ACUTE DISTRESS NOTED. NO NEEDS REQUESTED AT THIS TIME . NO C/O ANYTHING AT THIS TIME.
--- NOTE | 2018-08-26 16:51 | NUR ---
REPORT TO DUDLEY PETER. ALL QUESTIONS ANSWERED.
[2018-08-26] MEDS ORDERED: MAGNESIUM SULFATE PMX 2GM/50ML 50 ML IV ONE (17:00)
--- NOTE | 2018-08-26 17:01 | NUR ---
PT TRANSFERRED TO FLOOR. PT LEFT WITH ALL PERSONAL BELONGINGS. PT TOOK PURSE AND JEWELRY.
[2018-08-26 17:08] LABS: ACETAMINOPHEN 3 mcg/mL (10-30); SALICYLATE LEVEL 5.4 mg/dL (2.8-20.0)
[2018-08-26 17:23] VITALS: BP 124/66
[2018-08-26] MEDS: HEPARIN 5,000 UNITS/ML, 1ML SQ SCH (17:41)
[2018-08-26] MEDS: SODIUM CHLORIDE 0.9% 1,000 ML IV SCH (17:42)
[2018-08-26 17:48] LABS: RAPID INFLUENZA A Negative (Negative); RAPID INFLUENZA B Negative (Negative)
[2018-08-26 20:00] VITALS: BP 108/59
[2018-08-26 20:01] VITALS: BP 124/69
[2018-08-26 20:02] VITALS: BP 122/73
[2018-08-26] MEDS: INSULIN LISPRO 100 UNITS/ML, PEN SQ-INSULIN SCH (21:00)
[2018-08-26] MEDS: QUETIAPINE 200 MG TABLET PO SCH (21:24)
[2018-08-26] MEDS ORDERED: CETI10TA18 PO (23:53)
[2018-08-26] MEDS ORDERED: METF500T17 PO (23:53)
[2018-08-26] MEDS ORDERED: MELO15TA24 PO (23:53)
[2018-08-27] VITALS (8 sets, daily range): BP systolic 109–144; BP diastolic 67–78
[2018-08-27] MEDS: HEPARIN 5,000 UNITS/ML, 1ML SQ SCH ×3 (00:41→17:04)
[2018-08-27] MEDS: SODIUM CHLORIDE 0.9% 1,000 ML IV SCH ×3 (04:41→23:25)
[2018-08-27] MEDS: OMEPRAZOLE 20 MG CAPSULE.DR PO SCH (05:44)
[2018-08-27] MEDS ORDERED: LEVOTHYROXINE 175 MCG TABLET PO SCH (06:00)
[2018-08-27 06:09] LABS: BASOPHILS # (AUTO) 0.02 x10^3/uL (0-0.1); BASOPHILS % (AUTO) 0 % (0-1); EOSINOPHILS # (AUTO) 0.21 x10^3/uL (0-0.4); EOSINOPHILS % (AUTO) 3 % (1-7); LYMPHOCYTES # (AUTO) 3.53 x10^3/uL (1-3.4); LYMPHOCYTES % (AUTO) 53 % (22-44); MD NO; MEAN CORPUSCULAR HGB CONC 34.2 g/dL (32.4-35.8); MEAN CORPUSCULAR VOLUME 96.6 fL (80-100); MEAN PLATELET VOLUME 8.1 fL (7.4-10.4); MONOCYTES # (AUTO) 0.53 x10^3/uL (0.2-0.8); MONOCYTES % (AUTO) 8 % (2-9); NEUTROPHILS # (AUTO) 2.42 x10^3/uL (1.8-6.8); NEUTROPHILS % (AUTO) 36 % (42-75); PLATELET COUNT 281 x10^3/uL (130-400); RED BLOOD COUNT 2.81 x10^6/uL (3.82-5.3); RED CELL DISTRIBUTION WIDTH 12.3 % (9.6-15.2)
[2018-08-27 06:17] LABS: ANION GAP 7 mmol/L (5-15); CALCIUM 8.5 mg/dL (8.5-10.1); CHLORIDE 122 mmol/L (98-107); CREATININE 1.95 mg/dL (0.55-1.02)
[2018-08-27 06:31] LABS: THYROID STIMULATING HORMONE < 0.005 mIU/L (0.358-3.740)
[2018-08-27] MEDS: INSULIN LISPRO 100 UNITS/ML, PEN SQ-INSULIN SCH ×4 (07:00→20:23)
[2018-08-27 08:10] LABS: T4 (THYROXINE) 6.6 mcg/dL (4.8-13.9)
[2018-08-27] MEDS: CETIRIZINE 10 MG TABLET PO SCH (08:42)
[2018-08-27] MEDS: ATORVASTATIN 20 MG TABLET PO SCH (08:42)
[2018-08-27] MEDS: FERROUS SULFATE 325 MG TABLET PO SCH ×2 (08:42→17:04)
[2018-08-27] MEDS: SENNA/DOCUSATE TABLET PO SCH (08:43)
[2018-08-27 17:57] LABS: CULTURE INDICATED? YES; MICROSCOPIC AUTO
[2018-08-27 18:07] LABS: AMPHETAMINE SCREEN, URINE Negative (Negative); BARBITURATE SCREEN, URINE Negative (Negative); BENZODIAZEPINE SCREEN, URINE Negative (Negative); CANNABINOID SCREEN, URINE Negative (Negative); COCAINE SCREEN, URINE Negative (Negative); METHADONE SCREEN, URINE Negative (Negative); OPIATE SCREEN, URINE Negative (Negative)
[2018-08-27] MEDS: QUETIAPINE 200 MG TABLET PO SCH (20:23)
[2018-08-28] MEDS: HEPARIN 5,000 UNITS/ML, 1ML SQ SCH ×2 (01:10→08:51)
[2018-08-28 02:00] VITALS: BP 115/61
[2018-08-28] MEDS: OMEPRAZOLE 20 MG CAPSULE.DR PO SCH (05:34)
[2018-08-28 05:53] LABS: ALBUMIN 2.4 g/dL (3.4-5.0); ANION GAP 7 mmol/L (5-15); CALCIUM 8.2 mg/dL (8.5-10.1); CHLORIDE 124 mmol/L (98-107); CREATININE 1.66 mg/dL (0.55-1.02)
[2018-08-28] MEDS ORDERED: LEVOTHYROXINE 125 MCG TABLET PO SCH (06:00)
[2018-08-28 06:38] VITALS: BP 100/55
[2018-08-28] MEDS ORDERED: FOSFOMYCIN 3 GM PACKET PO ONE (07:00)
[2018-08-28] MEDS: INSULIN LISPRO 100 UNITS/ML, PEN SQ-INSULIN SCH ×2 (07:00→12:07)
[2018-08-28] MEDS: FERROUS SULFATE 325 MG TABLET PO SCH (08:51)
[2018-08-28] MEDS: SODIUM CHLORIDE 0.9% 1,000 ML IV SCH (08:51)
[2018-08-28] MEDS: ATORVASTATIN 20 MG TABLET PO SCH (08:51)
[2018-08-28] MEDS: CETIRIZINE 10 MG TABLET PO SCH (08:51)
[2018-08-28] MEDS: SENNA/DOCUSATE TABLET PO SCH (09:00)
[2018-08-28] MEDS ORDERED: LEVO125T PO (12:20)
[2018-08-28 13:40] VITALS: BP 123/69
== END 2018-08-28 15:20 | disposition home or self-care (01) | DRG 683 ==
LOC: ED 15:31 → EDIP 15:32 → 4EST 17:02
PROVIDERS: ADMIT Family Medicine; ATTEND Family Medicine
DX: N17.9 Acute kidney failure, unspecified (principal); N39.0 Urinary tract infection, site not specified; E44.1 Mild protein-calorie malnutrition; I95.9 Hypotension, unspecified; I12.9 Hypertensive chronic kidney disease with stage 1 through stage 4 chronic kidney disease, or unspecified chronic kidney disease; F17.200 Nicotine dependence, unspecified, uncomplicated; D64.9 Anemia, unspecified; E11.22 Type 2 diabetes mellitus with diabetic chronic kidney disease; E78.5 Hyperlipidemia, unspecified; E86.0 Dehydration; J44.9 Chronic obstructive pulmonary disease, unspecified; N18.9 Chronic kidney disease, unspecified; Z90.710 Acquired absence of both cervix and uterus; Z79.84 Long term (current) use of oral hypoglycemic drugs; Z88.5 Allergy status to narcotic agent; Z88.8 Allergy status to other drugs, medicaments and biological substances; Z88.1 Allergy status to other antibiotic agents
CPT/HCPCS: 36415; 71045; 71250; 80048; 80053; 80307; 80329; 81001; 82040; 82533; 82962; 83036; 83735; 83880; 84100; 84436; 84443; 84481; 84484; 85025; 85610; 85730; 87077; 87086; 87186; 87400; 93005; 93306; 96360; 99285; G0378; J1644; G0480; J3475; J7030

== ENCOUNTER 2020-03-11 11:49 | Inpatient (IN) | payer MEDICARE, MEDICAID ==
[~2020-03-11] VITALS: Ht 162.6 cm; Wt 80.7 kg
[~2020-03-11 11:49] MED LIST changes: +ALEN70TA6 PO; +CETI10TA18 PO; +CLONAZEPAM; +ERGO500017 PO; +FLUT9.9S NAS; +HYDR-3246 PO; -HYDR-3307 PO; +LEVO100T PO; +LEVO125T PO; +MELO15TA24 PO; +SODI1TAB PO; +SODI650T PO; +TORS10TA4 PO
--- NOTE | 2020-03-11 12:11 | NUR ---
PT BIB [facility], PER EMS, PT'S STATES PT WITH N/V X1.5 HOURS. PT WITH HX OF DEMENTIA AND HYPONATREMIA. 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 PT A&OX2, PER EMS, PT AT BASELINE MENTATION. NO VOMITING NOTED. ER PA-C AT BEDSIDE FOR ASSESSMENT. PT PLACED ON MONITORS, VSS. WILL FOLLOW ORDERS.
[2020-03-11 12:36] LABS: BASOPHILS % (AUTO) 1 % (0-1); EOSINOPHILS # (AUTO) 0.02 x10^3/uL (0-0.4); EOSINOPHILS % (AUTO) 0 % (1-7); LYMPHOCYTES # (AUTO) 1.13 x10^3/uL (1-3.4); LYMPHOCYTES % (AUTO) 9 % (22-44); MD NO; MEAN CORPUSCULAR HEMOGLOBIN 30.9 pg (27.0-34.8); MEAN CORPUSCULAR HGB CONC 32.9 g/dL (32.4-35.8); MEAN PLATELET VOLUME 5.6 fL (7.4-10.4); MONOCYTES # (AUTO) 0.67 x10^3/uL (0.2-0.8); MONOCYTES % (AUTO) 5 % (2-9); NEUTROPHILS % (AUTO) 85 % (42-75); PLATELET COUNT 425 x10^3/uL (130-400); RED BLOOD COUNT 3.49 x10^6/uL (3.82-5.3)
--- NOTE | 2020-03-11 12:42 | NUR ---
STRAIGHT CATH DONE PER ORDERS, SAMPLE SENT TO LAB.
[2020-03-11 12:45] LABS: ALBUMIN 2.9 g/dL (3.4-5.0); ANION GAP 10 mmol/L (5-15); CALCIUM 8.7 mg/dL (8.5-10.1); CHLORIDE 98 mmol/L (98-107); CREATININE 1.51 mg/dL (0.55-1.02)
[2020-03-11 12:58] LABS: MICROSCOPIC AUTO
[2020-03-11] MEDS ORDERED: SODIUM CHLORIDE 0.9% 1,000 ML IV ONE (13:50)
[2020-03-11] MEDS ORDERED: CEFTRIAXONE PMX 1GM/50ML 50 ML IV ONE (14:00)
[2020-03-11] MEDS ORDERED: CEFTRIAXONE PMX 1GM/50ML 50 ML ONE (14:05)
--- NOTE | 2020-03-11 14:20 | NUR ---
PT IVABX HUNG PER ORDERS, BLOOD CULTURES X2 DRAWN PRIOR. PT REMAINS ON MONITORS, VSS. PT TO BE [facility] ADMIT. CONT TO MONITOR.
[2020-03-11] MEDS ORDERED: hydrALAzine 20 MG/ML, 1ML IVPush PRN (15:00)
[2020-03-11] MEDS ORDERED: LACTATED RINGERS 1,000 ML IV SCH (15:00)
[2020-03-11] MEDS ORDERED: ACETAMINOPHEN 325 MG TABLET PO PRN (15:00)
[2020-03-11] MEDS ORDERED: ONDANSETRON ODT 4 MG PO PRN (15:00)
[2020-03-11] MEDS ORDERED: POLYETHYLENE GLYCOL 17 GM PACKET PO PRN (15:00)
--- NOTE | 2020-03-11 15:16 | NUR ---
PT UP TO RR, STANDBY ASISST, STEADY GAIT. REPORT GIVEN TO VELMA BUCKNER. PT OK TO TRANSFER TO FLOOR.
--- NOTE | 2020-03-11 16:25 | NUR ---
PT TRANSFERED TO FLOOR, HAS ALL OWN BELONGINGS.
[2020-03-11] MEDS ORDERED: ENOXAPARIN 40 MG/0.4 ML SQ SCH (16:30)
[2020-03-11 16:36] VITALS: BP 128/63
[2020-03-11] MEDS: SODIUM CHLORIDE 0.9% 1,000 ML IV SCH (17:48)
[2020-03-11 19:23] LABS: ANION GAP 7 mmol/L (5-15); CALCIUM 8.7 mg/dL (8.5-10.1); CHLORIDE 100 mmol/L (98-107); CREATININE 1.65 mg/dL (0.55-1.02)
[2020-03-11 20:08] VITALS: BP 144/76
[2020-03-11] MEDS: SODIUM BICARBONATE 650 MG TABLET PO SCH (20:28)
[2020-03-11] MEDS ORDERED: QUETIAPINE 200 MG TABLET PO SCH (21:00)
[2020-03-12] MEDS: SODIUM CHLORIDE 0.9% 1,000 ML IV SCH ×2 (00:55→09:10)
[2020-03-12 02:00] VITALS: BP 98/64
[2020-03-12 05:09] VITALS: BP 124/75
[2020-03-12] MEDS ORDERED: LEVOTHYROXINE 100 MCG TABLET PO SCH (06:00)
[2020-03-12 06:43] LABS: BASOPHILS # (AUTO) 0.02 x10^3/uL (0-0.1); BASOPHILS % (AUTO) 0 % (0-1); EOSINOPHILS # (AUTO) 0.09 x10^3/uL (0-0.4); EOSINOPHILS % (AUTO) 2 % (1-7); LYMPHOCYTES % (AUTO) 22 % (22-44); MD NO; MEAN CORPUSCULAR HGB CONC 32.9 g/dL (32.4-35.8); MEAN PLATELET VOLUME 5.6 fL (7.4-10.4); MONOCYTES # (AUTO) 0.44 x10^3/uL (0.2-0.8); MONOCYTES % (AUTO) 9 % (2-9); NEUTROPHILS # (AUTO) 3.28 x10^3/uL (1.8-6.8); NEUTROPHILS % (AUTO) 67 % (42-75); PLATELET COUNT 438 x10^3/uL (130-400); RED BLOOD COUNT 3.66 x10^6/uL (3.82-5.3); RED CELL DISTRIBUTION WIDTH 13.2 % (9.6-15.2)
[2020-03-12 06:53] LABS: ALANINE AMINOTRANSFERASE 16 U/L (12-78); ALBUMIN 2.7 g/dL (3.4-5.0); ANION GAP 8 mmol/L (5-15); CALCIUM 8.6 mg/dL (8.5-10.1); CHLORIDE 101 mmol/L (98-107)
[2020-03-12 06:56] LABS: ALKALINE PHOSPHATASE 143 U/L (45-117); BILIRUBIN,TOTAL 0.5 mg/dL (0.2-1.0); CREATININE 1.57 mg/dL (0.55-1.02); TOTAL PROTEIN 7.2 g/dL (6.4-8.2)
[2020-03-12 07:20] VITALS: BP 136/77
[2020-03-12] MEDS ORDERED: ERGOCALCIFEROL 50,000 UNIT CAPSULE PO SCH (09:00)
[2020-03-12] MEDS ORDERED: ATORVASTATIN 20 MG TABLET PO SCH (09:00)
[2020-03-12] MEDS: SODIUM BICARBONATE 650 MG TABLET PO SCH (09:10)
[2020-03-12] MEDS ORDERED: CEFD300C37 PO (10:46)
[2020-03-12 13:21] VITALS: BP 120/76
[2020-03-12] MEDS ORDERED: CEFTRIAXONE PMX 1GM/50ML 50 ML IV SCH (14:00)
[2020-03-12] MEDS ORDERED: SODIUM CHLORIDE 0.9% 1,000 ML IV SCH (14:55)
== END 2020-03-12 17:26 | disposition home health service (06) | DRG 690 ==
LOC: ED 13:54 → EDIP 14:25 → 3N 16:20
PROVIDERS: ADMIT Family Medicine; ATTEND Family Medicine
PROC: 0T9B70Z Drainage of Bladder with Drainage Device, Via Natural or Artificial Opening (ICD-10-PCS; principal; 2020-03-11)
DX: N39.0 Urinary tract infection, site not specified (principal); E22.2 Syndrome of inappropriate secretion of antidiuretic hormone; E87.2 Acidosis; E03.9 Hypothyroidism, unspecified; B96.20 Unspecified Escherichia coli [E. coli] as the cause of diseases classified elsewhere; F03.90 Unspecified dementia, unspecified severity, without behavioral disturbance, psychotic disturbance, mood disturbance, and anxiety; J44.9 Chronic obstructive pulmonary disease, unspecified; E11.9 Type 2 diabetes mellitus without complications; F17.210 Nicotine dependence, cigarettes, uncomplicated; M81.0 Age-related osteoporosis without current pathological fracture; D64.9 Anemia, unspecified; E66.9 Obesity, unspecified; Z68.30 Body mass index [BMI] 30.0-30.9, adult; Z88.6 Allergy status to analgesic agent; Z88.1 Allergy status to other antibiotic agents; Z88.5 Allergy status to narcotic agent; Z79.51 Long term (current) use of inhaled steroids; Z79.899 Other long term (current) drug therapy; Z79.84 Long term (current) use of oral hypoglycemic drugs
CPT/HCPCS: 36415; 80048; 80053; 81001; 82040; 83605; 84145; 85025; 87040; 87077; 87086; 87186; 93005; 96365; 96375; 99285; G0378; J0696; J7030

== ENCOUNTER 2020-04-23 15:47 | Emergency (ER) | payer MEDICARE, MEDICAID ==
[~2020-04-23] VITALS: Ht 162.6 cm; Wt 86.3 kg
[~2020-04-23 15:47] MED LIST changes: +CEFD300C37 PO
--- NOTE | 2020-04-23 16:36 | NUR ---
PT IN HOSPITAL GOWN, ON VITALS MONITORS. ATTEMPTED TO COLLECT URINE SAMPLE WHEN PT ASSISTED TO BATHROOM. PT BECAME CONFUSED AND DUMPED URINE FROM HAT INTO TOILET. PT WALKED BACK TO ROOM WITH ONE PERSON ASSIST. WILL CONTINUE TO MONITOR.
[2020-04-23 17:44] LABS: BASOPHILS # (AUTO) 0.04 x10^3/uL (0-0.1); BASOPHILS % (AUTO) 0 % (0-1); EOSINOPHILS # (AUTO) 0.08 x10^3/uL (0-0.4); EOSINOPHILS % (AUTO) 1 % (1-7); LYMPHOCYTES # (AUTO) 1.68 x10^3/uL (1-3.4); LYMPHOCYTES % (AUTO) 17 % (22-44); MD NO; MEAN CORPUSCULAR HEMOGLOBIN 31.7 pg (27.0-34.8); MEAN CORPUSCULAR HGB CONC 33.4 g/dL (32.4-35.8); MEAN CORPUSCULAR VOLUME 94.7 fL (80-100); MEAN PLATELET VOLUME 5.8 fL (7.4-10.4); MONOCYTES # (AUTO) 0.73 x10^3/uL (0.2-0.8); MONOCYTES % (AUTO) 8 % (2-9); NEUTROPHILS # (AUTO) 7.13 x10^3/uL (1.8-6.8); NEUTROPHILS % (AUTO) 74 % (42-75); PLATELET COUNT 532 x10^3/uL (130-400); RED BLOOD COUNT 3.47 x10^6/uL (3.82-5.3); RED CELL DISTRIBUTION WIDTH 13.8 % (9.6-15.2)
--- NOTE | 2020-04-23 17:50 | NUR ---
OBTAINED URINE WITH STRAIGHT CATH. PT TOLERATED WELL. PT REMOVING VITALS MONITORS, STATED THEY ARE UNCOMFORTABLE.
[2020-04-23 17:55] LABS: ALANINE AMINOTRANSFERASE 14 U/L (12-78); ALBUMIN 3.2 g/dL (3.4-5.0); ANION GAP 7 mmol/L (5-15); CALCIUM 8.5 mg/dL (8.5-10.1); CHLORIDE 104 mmol/L (98-107); CREATININE 1.32 mg/dL (0.55-1.02)
[2020-04-23 17:57] LABS: ALKALINE PHOSPHATASE 148 U/L (45-117); BILIRUBIN,TOTAL 0.4 mg/dL (0.2-1.0); TOTAL PROTEIN 7.4 g/dL (6.4-8.2)
[2020-04-23 18:08] VITALS: BP 161/72
[2020-04-23 18:08] LABS: MICROSCOPIC AUTO
--- NOTE | 2020-04-23 21:26 | NUR ---
Called to arrange transport; states he has no form of transportation. He was comfortable with us sending patient home in a cab. Voucher provided and patient sent home in cab. Discharge instructions provided. Patient ambulatory with a steady gait. Belongings with patient.
== END 2020-04-23 21:31 | disposition home or self-care (01) ==
LOC: ED 20:58
DX: F03.90 Unspecified dementia, unspecified severity, without behavioral disturbance, psychotic disturbance, mood disturbance, and anxiety (principal); R41.82 Altered mental status, unspecified; R10.11 Right upper quadrant pain; I10 Essential (primary) hypertension; E11.9 Type 2 diabetes mellitus without complications; I95.9 Hypotension, unspecified
CPT/HCPCS: 36415; 70450; 71045; 80053; 80307; 81001; 85025; 99285

== ENCOUNTER 2020-05-11 09:27 | Emergency (ER) | payer MEDICARE, MEDICAID ==
[~2020-05-11] VITALS: Ht 165.1 cm; Wt 95.5 kg
[2020-05-11 09:53] LABS: BASOPHILS # (AUTO) 0.04 x10^3/uL (0-0.1); BASOPHILS % (AUTO) 0 % (0-1); EOSINOPHILS # (AUTO) 0.03 x10^3/uL (0-0.4); EOSINOPHILS % (AUTO) 0 % (1-7); LYMPHOCYTES # (AUTO) 1.34 x10^3/uL (1-3.4); LYMPHOCYTES % (AUTO) 14 % (22-44); MD NO; MEAN CORPUSCULAR HEMOGLOBIN 31.4 pg (27.0-34.8); MEAN CORPUSCULAR HGB CONC 33.4 g/dL (32.4-35.8); MEAN CORPUSCULAR VOLUME 94.1 fL (80-100); MEAN PLATELET VOLUME 6.2 fL (7.4-10.4); MONOCYTES # (AUTO) 0.52 x10^3/uL (0.2-0.8); MONOCYTES % (AUTO) 6 % (2-9); NEUTROPHILS # (AUTO) 7.42 x10^3/uL (1.8-6.8); NEUTROPHILS % (AUTO) 79 % (42-75); PLATELET COUNT 403 x10^3/uL (130-400); RED BLOOD COUNT 3.91 x10^6/uL (3.82-5.3)
[2020-05-11] MEDS ORDERED: DIAZEPAM 5 MG/ML, 2ML ONE (10:00)
[2020-05-11] MEDS ORDERED: METOCLOPRAMIDE 5 MG/ML, 2ML ONE (10:00)
[2020-05-11 10:04] LABS: ALBUMIN 3.5 g/dL (3.4-5.0); ANION GAP 11 mmol/L (5-15); CALCIUM 9.6 mg/dL (8.5-10.1); CHLORIDE 102 mmol/L (98-107); CREATININE 1.58 mg/dL (0.55-1.02)
--- NOTE | 2020-05-11 10:30 | NUR ---
UA OBTAINED VIA SC WITH BACTERIOLOGY RESEARCH ASSISTANT STUDENT ASSIST. PT TOLERATED WELL.
[2020-05-11 10:39] LABS: MICROSCOPIC NOT IND
[2020-05-11 10:40] VITALS: BP 150/76
== END 2020-05-11 11:52 | disposition home or self-care (01) ==
LOC: ED 10:13
DX: R41.82 Altered mental status, unspecified (principal); G30.0 Alzheimer's disease with early onset; F02.80 Dementia in other diseases classified elsewhere, unspecified severity, without behavioral disturbance, psychotic disturbance, mood disturbance, and anxiety; R06.89 Other abnormalities of breathing; R94.31 Abnormal electrocardiogram [ECG] [EKG]
CPT/HCPCS: 36415; 71045; 80048; 81003; 82040; 85025; 93005; 99285

== ENCOUNTER 2020-10-16 04:25 | Emergency (ER) | payer MEDICARE, MEDICAID ==
[~2020-10-16] VITALS: Ht 167.6 cm; Wt 85.0 kg
[~2020-10-16 04:25] MED LIST changes: -ALEN70TA6 PO; +ALEN70TA77 PO; -HYDR-3246 PO; +HYDR-3248 PO; -RISP0.5T3 PO; +RISP0.5T62 PO
--- NOTE | 2020-10-16 04:25 | NUR ---
INITIAL PT CONTACT, PT PRESENTS TO ED VIA EMS C/O INCREASED FREQUENCY OF URINATION. PT FAMILY AT SCENE, PT HAS BEEN AWAKE ALL NIGHT TO URINATE AND UNABLE TO SLEEP FOR THE PAST 2 DAYS. PT HAS HX OF FREQUENT UTI'S AND DEMENTIA. PT UP WITH STEADY GAIT UPON ARRIVAL TO ED TO BATHROOM, CLEAN CATCH URINE SAMPLE PROVIDED. PT SITING UPRIGHT ON GURNEY, NADN, VSS. PT DENIES ANY NEEDS AT THIS TIME. CALL LIGHT IN REACH
[2020-10-16 05:02] LABS: MICROSCOPIC INDICATED
[2020-10-16 05:08] LABS: BASOPHILS % (AUTO) 1 % (0-1); EOSINOPHILS % (AUTO) 1 % (1-7); LYMPHOCYTES % (AUTO) 18 % (22-44); MEAN CORPUSCULAR HGB CONC 34.9 g/dL (32.4-35.8); MONOCYTES % (AUTO) 6 % (2-9); NEUTROPHILS % (AUTO) 74 % (42-75); PLATELET COUNT 391 x10^3/uL (130-400); RED CELL DISTRIBUTION WIDTH 13.7 % (9.6-15.2)
[2020-10-16 05:11] LABS: MD NO
[2020-10-16 05:19] LABS: ALANINE AMINOTRANSFERASE 15 U/L (12-78); ALBUMIN 3.2 g/dL (3.4-5.0); ANION GAP 8 mmol/L (5-15); CALCIUM 9.1 mg/dL (8.5-10.1); CHLORIDE 111 mmol/L (98-107)
[2020-10-16 05:22] LABS: ALKALINE PHOSPHATASE 130 U/L (45-117); BILIRUBIN,TOTAL 0.6 mg/dL (0.2-1.0); CREATININE 1.49 mg/dL (0.55-1.02)
--- NOTE | 2020-10-16 05:28 | NUR ---
PT AMBULATORY WITH STEADY GAIT TO BATHROOM. PT RETURNED TO ROOM, NO ADDITIONAL NEEDS. CALL LIGHT AND PERSONAL BELONGINGS WITHIN REACH. WILL CONTINUE TO MONITOR
--- NOTE | 2020-10-16 06:06 | NUR ---
STRAIGHT CATH PREFORMED PER ERP ORDER. PT TOLERATED WELL. PT DENIES ANY ADDITIONAL NEEDS AT THIS TIME. CALL LIGHT AND PERSONAL BELONGINGS WITHIN REACH.
--- NOTE | 2020-10-16 06:12 | NUR ---
PT UP TO BATHROOM WITH STEADY GAIT. NO ADDITIONAL NEEDS AT THIS TIME
[2020-10-16 06:16] VITALS: BP 152/62
[2020-10-16 06:16] LABS: MICROSCOPIC NOT IND
--- NOTE | 2020-10-16 06:51 | NUR ---
PHONE CALL WITH OF PT LUIS ARMANDO. CALL TO UPDATE AND INFORM WILL BE DISCHARGED FROM THE ED. STATES "WE DON'T HAVE A WAY TO GET HER HOME. LAST TIME SHE WAS THERE SHE TOOK A MEDICAL TRANSPORT COMPANY HOME. WE REALLY CANT COME GET HERE". ERP AWARE. ATTEMPT TO ARRANGE TRANSPORT.
--- NOTE | 2020-10-16 06:51 | NUR ---
REPORT FROM MARSHA
--- NOTE | 2020-10-16 07:02 | NUR ---
BEDSIDE REPORT TO HARIKA BUCKNER
--- NOTE | 2020-10-16 07:26 | NUR ---
PT VERY PLEASANT. ORGANIZING LINENS, OCCASIONAL WALKS IN [place] W STEADY GAIT. GIVEN ORANGE JUICE AND CRACKERS, RN FREQUENTLY CHECKING ON PT FOR SAFETY. PLAN TO BE DC HOME VIA [employer].
--- NOTE | 2020-10-16 09:02 | NUR ---
GAVE PT BREAKFAST TRAY.
--- NOTE | 2020-10-16 09:05 | NUR ---
RECEIVED REPORT FROM DUDLEY SHABAZZ. PT RESTING ON [place].
--- NOTE | 2020-10-16 09:41 | NUR ---
ATTEMPTED TO GET AHOLD OF PT ONLY CONTACT AT [phone]. PHONE UNABLE TO TAKE CALL AT THIS TIME. MESSAGE LEFT.
--- NOTE | 2020-10-16 09:47 | NUR ---
PT CALLED BACK AND WAS NOTIFIED OF PT BEING READY TO BE RELEASED FROM ED. PER PT THEY DO NOT DRIVE AND RELY ON ACCESS TRANSPORTATION. PT EDUCATED ABOUT [employer] FOR 'S SAFE D[employer]AR[employer]. VERIFIED DISCHARGE ADDRESS. PER WILL BE HOME TO RECEIVE PT ONCE SHE GETS HOME. DISCHARGE ADDRESS: [id number] [place]
--- NOTE | 2020-10-16 10:26 | NUR ---
PT RESTING ON GURNEY. AVILA
== END 2020-10-16 11:53 | disposition home or self-care (01) ==
LOC: ED 07:21
DX: R30.0 Dysuria (principal); R35.0 Frequency of micturition; I10 Essential (primary) hypertension; E11.9 Type 2 diabetes mellitus without complications; Z79.899 Other long term (current) drug therapy
CPT/HCPCS: 36415; 80053; 81001; 81003; 85025; 87086; 99283

== ENCOUNTER 2021-01-01 17:59 | Emergency (ER) | payer MEDICARE, MEDICAID ==
[~2021-01-01] VITALS: Ht 167.6 cm; Wt 90.0 kg
--- NOTE | 2021-01-01 18:18 | NUR ---
THIS IS A 65 YO F BIB EMS FROM HOME AFTER SPOUSE CALLED EMS D/T PTS C/O BLADDER PAIN AND INCREASED WEAKNESSX2 DAYS, HX OF FREQUENT UTIS. PT A&OX1 BASELINE. PIV BUSINESS SYSTEM CONSULTANT. NO INTERVENTIONS BUSINESS SYSTEM CONSULTANT. PT RESTING ON GURNEY W/ CALL LIGHT IN REACH AND SIDE RAILS UPX2. RESP EVEN AND UNLABORED, NADN. DR.VAN PATEL AT BEDSIDE.
--- NOTE | 2021-01-01 18:28 | NUR ---
STRAIGHT CATH URINE OBTAINED W/O INCIDENT. LAB AT BEDSIDE.
[2021-01-01 18:32] VITALS: BP 129/70
[2021-01-01 18:37] LABS: BASOPHILS % (AUTO) 1 % (0-1); EOSINOPHILS % (AUTO) 3 % (1-7); LYMPHOCYTES % (AUTO) 35 % (22-44); MEAN CORPUSCULAR HEMOGLOBIN 33.8 pg (27.0-34.8); MEAN CORPUSCULAR HGB CONC 34.2 g/dL (32.4-35.8); MEAN PLATELET VOLUME 6.3 fL (7.4-10.4); MONOCYTES % (AUTO) 8 % (2-9); NEUTROPHILS % (AUTO) 53 % (42-75); PLATELET COUNT 349 x10^3/uL (130-400); RED BLOOD COUNT 3.45 x10^6/uL (3.82-5.3); RED CELL DISTRIBUTION WIDTH 13.5 % (9.6-15.2)
[2021-01-01 18:38] LABS: MD NO
[2021-01-01 18:46] LABS: ANION GAP 4 mmol/L (5-15); CALCIUM 8.4 mg/dL (8.5-10.1); CHLORIDE 114 mmol/L (98-107); CREATININE 1.71 mg/dL (0.55-1.02)
--- NOTE | 2021-01-01 18:50 | NUR ---
REPORT TO BAR RN, PT RESTING ON [employer] W/ CALL LIGHT IN REACH AND SIDE RAILS UPX2. RESP EVEN AND UNLABORED, YANCY.
[2021-01-01 18:52] LABS: MICROSCOPIC INDICATED
[2021-01-01] MEDS ORDERED: FOSFOMYCIN 3 GM PACKET ONE (19:38)
--- NOTE | 2021-01-01 19:55 | NUR ---
PT MEDICATED PER EMAR. PT AWAKE AND ALERT.
[2021-01-01] MEDS ORDERED: FOSFOMYCIN 3 GM PACKET PO ONE (20:00)
--- NOTE | 2021-01-01 20:18 | NUR ---
F/U AND D/C INSTRUCTIONS GIVEN TO PT AND SHE V/U. PT AMBULATED TO D/C. CAB VOUCHER PROVIDED TO GET PT HOME TO HER AT HER REQUEST.
== END 2021-01-01 20:21 | disposition home or self-care (01) ==
LOC: ED 20:04
DX: R30.0 Dysuria (principal); R53.1 Weakness; I10 Essential (primary) hypertension; E11.9 Type 2 diabetes mellitus without complications
CPT/HCPCS: 36415; 80048; 81001; 85025; 87077; 87086; 87186; 99283